=== PATIENT | male | born 1965 ===

== ENCOUNTER 2018-07-28 07:40 | Outpatient (CLI) | payer OTHER ==
[~2018-07-28 07:40] MED LIST: LISINOPRIL1 GM
== END 2018-07-28 15:29 | disposition home or self-care (01) ==
LOC: MRI 07:40
DX: M25.561 Pain in right knee (principal)
CPT/HCPCS: 73721

== ENCOUNTER 2018-08-17 06:30 | Day surgery (SDC) | payer OTHER ==
[2018-08-17] MEDS ORDERED: CELEBREX200MG PO (09:55)
== END 2018-08-17 11:30 | disposition home or self-care (01) ==
LOC: CIR.AMB
DX: M23.221 Derangement of posterior horn of medial meniscus due to old tear or injury, right knee (principal)

== ENCOUNTER 2020-03-20 08:28 | Outpatient (CLI) | payer OTHER ==
[~2020-03-20 08:28] MED LIST changes: +CELEBREX200MG PO
== END 2020-03-20 08:30 | disposition home or self-care (01) ==
LOC: PPH VACUNA 08:28
DX: Z23 Encounter for immunization (principal)

== ENCOUNTER 2020-12-06 06:00 | Day surgery (SDC) | payer OTHER ==
[~2020-12-06 06:00] MED LIST changes: +BUSP PO; +HORIZANT300 MG PO; +ZESTRIL20 MG PO
== END 2020-12-06 09:20 | disposition home or self-care (01) ==
LOC: CIR.AMB 06:00
PROVIDERS: ATTEND Orthopaedic Surgery
DX: M77.12 Lateral epicondylitis, left elbow (principal); Z20.822 Contact with and (suspected) exposure to COVID-19

== ENCOUNTER 2021-05-30 08:52 | Outpatient (CLI) | payer OTHER | END 2021-05-30 08:56 | disposition home or self-care (01) | LOC: RAD 08:52 | PROVIDERS: ATTEND Specialist | DX: R07.9 Chest pain, unspecified (principal) ==

== ENCOUNTER 2021-12-05 08:00 | Outpatient (CLI) | payer OTHER | END 2021-12-05 08:05 | disposition home or self-care (01) | LOC: PPH VACUNA 08:00 | PROVIDERS: ATTEND Emergency Medicine Pediatric Emergency Medicine | DX: Z23 Encounter for immunization (principal) ==

== ENCOUNTER 2022-11-19 06:58 | Outpatient (CLI) | payer OTHER | END 2022-11-19 07:15 | disposition home or self-care (01) | LOC: MRI 06:58 | PROVIDERS: ATTEND Orthopaedic Surgery | DX: M23.91 Unspecified internal derangement of right knee (principal); M23.92 Unspecified internal derangement of left knee; M76.51 Patellar tendinitis, right knee; M76.52 Patellar tendinitis, left knee | CPT/HCPCS: 73721 ==

== ENCOUNTER 2023-11-20 08:51 | Outpatient (CLI) | payer OTHER | END 2023-11-20 08:58 | disposition home or self-care (01) | LOC: SONOGRAMA 08:51 | PROVIDERS: ATTEND Urology | DX: N20.1 Calculus of ureter (principal) ==